=== PATIENT | male | born 1970 | race Caucasian/White ===

== ENCOUNTER 2017-10-26 10:49 | Emergency (ER) | payer OTHER ==
[~2017-10-26] VITALS: Ht 182.9 cm; Wt 131.5 kg
[2017-10-26] MEDS ORDERED: HYDROCHLOROTHIA25 MG PO (11:04)
--- NOTE | 2017-10-26 19:36 | EKG ---
[facility] [address] [facility] [place], [place] [address] Signed Normal sinus rhythm Rightward axis Borderline ECG No previous ECGs available Confirmed by PANCHO BIRMINGHAM MD ([id number]) on 10/26/2017 7:36:11 PM Electronically Signed By: PANCHO BIRMINGHAM MD 10/26/17 193 PATIENT NAME: CUONGFRANCES WENDI Electrocardiogram DATE OF : 68 PHYSICIAN: PANCHO BIRMINGHAM MD REPORT #: [id number] REPORT IS CONFIDENTIAL AND NOT TO BE RELEASED WITHOUT AUTHORIZATION
== END 2017-10-26 12:10 | disposition home or self-care (01) ==
LOC: ED 10:49
DX: R07.9 Chest pain, unspecified (principal); Z90.89 Acquired absence of other organs; Z88.8 Allergy status to other drugs, medicaments and biological substances; Z79.899 Other long term (current) drug therapy
CPT/HCPCS: 71020; 80053; 84484; 85025; 93005; 93010; 99284